=== PATIENT | male | born 1955 | race Caucasian/White ===

== ENCOUNTER 2016-09-03 18:36 | Emergency (ER) | payer OTHER ==
[2016-09-03 18:42] VITALS: BP 133/77; PULSE 94; RESP 20; TEMP 97.9; O2SAT 97
[2016-09-03] MEDS ORDERED: AZITHROMYCIN 250 MG TAB PO ONE (18:55)
--- NOTE | 2016-09-03 18:59 | EDPHY ---
H & P Stated Complaint: 8 days of SOB, body aches, cough, fevers and general malaise. Time Seen by Provider: 09/03/16 18:48 HPI/ROS: CHIEF COMPLAINT: Sinus congestion, cough, sore throat HISTORY OF PRESENT ILLNESS: Patient is a 52-year-old man who comes to the emergency department with his complaining low-grade fevers, sinus congestion, cough, sore throat and laryngitis. is worried that he may have developed pneumonia. He has been sick for about 8 day's. He has been taking TheraFlu and ibuprofen with only moderate improvement. He does complain of body aches. No rashes. No shortness of breath. History of cardiac or pulmonary disease. REVIEW OF SYSTEMS: Constitutional: See HPI EENTM: See HPI Respiratory: See HPI Cardiac: denies: chest pain, irregular heart rate, lightheadedness, palpitations Gastrointestinal/Abdominal: denies: abdominal pain, diarrhea, nausea, vomiting, blood streaked stools Genitourinary: denies: dysuria, frequency, hematuria, pain Musculoskeletal: denies: joint pain, muscle pain Skin: denies: lesions, rash, jaundice, bruising Neurological: denies: headache, numbness, paresthesia, tingling, dizziness, weakness Hematologic/Lymphatic: denies: blood clots, easy bleeding, easy bruising Immunologic/allergic: denies: HIV/AIDS, transplant EXAM: GENERAL: Well-appearing, well-nourished and in no acute distress. HEAD: Atraumatic, normocephalic. EYES: Pupils equal round and reactive to light, extraocular movements intact, sclera anicteric, conjunctiva are normal. ENT: TMs with purulent effusion , nares congested , oropharynx mildly erythematous without exudates. Moist mucous membranes. NECK: Normal range of motion, supple without lymphadenopathy or JVD. LUNGS: Breath sounds clear to auscultation bilaterally and equal. No wheezes rales or rhonchi. HEART: Regular rate and rhythm without murmurs, rubs or gallops. ABDOMEN: Soft, nontender, normoactive bowel sounds. No guarding, no rebound. No masses appreciated. BACK: No CVA tenderness, no spinal tenderness, step-offs or deformities EXTREMITIES: Normal range of motion, no pitting or edema. No clubbing or cyanosis. NEUROLOGICAL: Cranial nerves II through XII grossly intact. Normal speech, normal gait. 5/5 strength, normal movement in all extremities, normal sensation PSYCH: Normal mood, normal affect. SKIN: Warm, dry, normal turgor, no visible rashes or lesions. Source: Patient, Family - Personal History Current Tetanus Diphtheria and Acellular Pertussis (TDAP): Unsure - Medical/Surgical History Hx Asthma: No Hx Chronic Respiratory Disease: No Hx Diabetes: No Hx Cardiac Disease: No Hx Renal Disease: No Hx Cirrhosis: No Hx Alcoholism: No Hx HIV/AIDS: No Hx Splenectomy or Spleen Trauma: No Other PMH: HTN, High cholestrol. - Family History Significant Family History: No pertinent family hx - Social History Smoking Status: Never smoked Alcohol Use: Sober Drug Use: None Constitutional: Initial Vital Signs Temperature (C) 36.6 C 09/03/16 18:36 Heart Rate 94 09/03/16 18:36 Respiratory Rate 20 09/03/16 18:36 Blood Pressure 133/77 H 09/03/16 18:36 O2 Sat (%) 97 09/03/16 18:36 O2 Delivery Mode Room Air Allergies/Adverse Reactions: No Known Allergies Allergy (Unverified 11/03/10 08:57) Home Medications: Medication Instructions Recorded Cholesterol Med 11/03/10 Ciprofloxacin Ophth [Ciloxan eye 1 drop E.EYE Q4 #1 btl 11/03/10 drops] MICARDIS 80 mg DAILY 11/03/10 Olopatadine 0.1% [Patanol] 1 drops EACHEYE BID #1 bottle 11/03/10 Azithromycin 250 mg PO DAILY #4 tablet 09/03/16 Medical Decision Making ED Course/Re-evaluation: Patient does have sinusitis. His lung sounds are clear and vital signs are stable. Start him on azithromycin. He and his happy with this plan and declines further workup or testing. Differential Diagnosis: Partial list of the Differential diagnosis considered include but were not limited to; sinusitis, upper respiratory tract infection, otitis media, bronchitis and although unlikely based on the history and physical exam, I also considered pneumonia, meningitis, endocarditis. I discussed these differential diagnoses and the plan with the patient as well as the usual and expected course. The patient understands that the diagnosis is provisional and that in medicine we are not always correct and that further workup is often warranted. Usual and customary warnings were given. All of the patient's questions were answered. The patient was instructed to return to the emergency department should the symptoms at all worsen or return, otherwise to followup with the physician as we discussed. - Data Points Medications Given: Discontinued Medications Azithromycin (Zithromax) 500 mg PO EDNOW ONE PRN Reason: Protocol Stop: 09/03/16 18:56 Last Admin: 09/03/16 19:07 Dose: 500 mg Departure - Departure Disposition: Home, Routine, Self-Care Clinical Impression: Sinusitis Qualifiers: Sinusitis location: frontal Chronicity: acute Recurrence: non-recurrent Qualified Code(s): J01.10 - Acute frontal sinusitis, unspecified Condition: Fair Instructions: Sinusitis (ED) Referrals: [facility] [Other] - As per Instructions Prescriptions: Azithromycin 250 mg PO DAILY #4 tablet
== END 2016-09-03 19:19 | disposition home or self-care (01) ==
DX: J01.10 Acute frontal sinusitis, unspecified (principal); I10 Essential (primary) hypertension

== ENCOUNTER 2017-01-04 10:25 | Observation (INO) | payer OTHER ==
--- NOTE | 2017-01-04 10:54 | EDPHY ---
H & P Time Seen by Provider: 01/04/17 10:40 HPI/ROS: Chief complaint. Vertigo HPI. 61-year-old male presents emergency department with vertigo. He has a strong spinning component. He has had upper respiratory symptoms for a week with slight fever at onset. He was seen by his PCP who recommended symptomatic care for viral syndrome. Since then he has had no fever, headache, chest discomfort, shortness of breath. No abdominal pain but nausea with movement. His symptoms are better at rest and worse with head movement or upright position. No peripheral findings of weakness or paresthesias. He has had previous vertigo. He also has ringing in his ears currently ROS Constitutional. no fever/chills, no weakness Eyes. no problems with vision ENT. Congestion and ringing in ears Cardiovascular. no chest pain Respiratory. no shortness of breath, no cough Abdominal. No abdominal pain but nausea . no problems urinating MS. no calf pain/swelling, no neck/back pain, no joint pain Skin. no rash Lymph. no swollen glands Neuro. Dizzy which he describes as spinning Past Medical/Surgical History: Vertigo, hypertension, dyslipidemia, diverticulitis Social History: , nonsmoker, no alcohol Smoking Status: Never smoked Physical Exam: General Appearance: Alert pleasant well-developed male mild distress vital signs are stable Eyes: Pupils equal round reactive. There is mild horizontal nystagmus. ENT, tympanic membranes are normal. Pharynx without injection Respiratory: There are no retractions, lungs are clear to auscultation. Cardiovascular: Regular rate and rhythm. Gastrointestinal: Abdomen is soft and nontender, no masses, bowel sounds normal. Neurological: Awake and alert, sensory and motor exams grossly normal. Skin: Warm and dry, no rashes. Musculoskeletal: Neck is supple nontender. Extremities symmetrical, full range of motion. Psychiatric: Patient is oriented X 3, there is no agitation. Constitutional: Initial Vital Signs Temperature (C) 36.6 C 01/04/17 10:30 Heart Rate 78 01/04/17 10:30 Respiratory Rate 16 01/04/17 10:30 Blood Pressure 123/88 H 01/04/17 10:30 O2 Sat (%) 94 01/04/17 10:30 O2 Delivery Mode Room Air Allergies/Adverse Reactions: No Known Allergies Allergy (Unverified 11/03/10 08:57) Home Medications: Medication Instructions Recorded Carvedilol Cr [Coreg Cr] 10 mg PO HS 01/04/17 Omeprazole [Prilosec 20 mg] 20 mg PO DAILY PRN 01/04/17 Pravastatin Sodium [Pravachol] 80 mg PO HS 01/04/17 Telmisartan [Micardis] 80 mg PO HS 01/04/17 Medical Decision Making Procedures: IV normal saline, monitor. Meclizine and Ativan orally ED Course/Re-evaluation: Re-evaluation 1:15 p.m. patient is really not improved. I sat the patient up and he is nauseated and still having significant spinning sensation. Otherwise remains neurologically intact The patient, his , and I discussed treatment plan including recommendation for admission. They expressed understanding and agreement I consulted discussed case with Dr. Pearson, hospitalist, who agrees to the admission Differential Diagnosis: This is likely peripheral vertigo with horizontal nystagmus and normal neurologic exam. However, I have also considered central causes such as CVA. - Data Points Laboratory Results: Laboratory Results 01/04/17 10:40 01/04/17 10:40 01/04/17 01/04/17 10:40 10:40 WBC 8.60 10^3/uL 10^3/uL (3.80-9.50) RBC 5.37 10^6/uL 10^6/uL (4.40-6.38) Hgb 17.4 g/dL g/dL (13.7-17.5) Hct 47.3 % % (40.0-51.0) MCV 88.1 fL fL (81.5-99.8) MCH 32.4 pg pg (27.9-34.1) MCHC 36.8 g/dL H g/dL (32.4-36.7) RDW 13.0 % % (11.5-15.2) Plt Count 351 10^3/uL 10^3/uL (150-400) MPV 9.5 fL fL (8.7-11.7) Neut % (Auto) 66.0 % % (39.3-74.2) Lymph % (Auto) 23.5 % % (15.0-45.0) [place] % (Auto) 7.9 % % (4.5-13.0) Eos % (Auto) 1.5 % % (0.6-7.6) Baso % (Auto) 0.5 % % (0.3-1.7) Nucleat RBC Rel Count 0.0 % % (0.0-0.2) Absolute Neuts (auto) 5.68 10^3/uL 10^3/uL (1.70-6.50) Absolute Lymphs (auto) 2.02 10^3/uL 10^3/uL (1.00-3.00) Absolute Monos (auto) 0.68 10^3/uL 10^3/uL (0.30-0.80) Absolute Eos (auto) 0.13 10^3/uL 10^3/uL (0.03-0.40) Absolute Basos (auto) 0.04 10^3/uL 10^3/uL (0.02-0.10) Absolute Nucleated RBC 0.00 10^3/uL 10^3/uL (0-0.01) Immature Gran % 0.6 % % (0.0-1.1) Immature Gran # 0.05 10^3/uL 10^3/uL (0.00-0.10) Sodium 142 mEq/L mEq/L (134-144) Potassium 4.7 mEq/L mEq/L (3.5-5.2) Chloride 106 mEq/L mEq/L (97-110) Carbon Dioxide 23 mEq/l mEq/l (22-31) Anion Gap 13 mEq/L mEq/L (8-16) BUN 20 mg/dL mg/dL (7-23) Creatinine 0.9 mg/dL mg/dL (0.7-1.3) Estimated GFR > 60 Glucose 123 mg/dL H mg/dL (70-100) Calcium 10.2 mg/dL mg/dL (8.5-10.4) Troponin I < 0.012 ng/mL ng/mL (0.000-0.034) Medications Given: Discontinued Medications Lorazepam (Ativan) 0.5 mg PO EDNOW ONE Stop: 01/04/17 11:05 Last Admin: 01/04/17 11:41 Dose: 0.5 mg Lorazepam (Ativan) 0.5 mg PO EDNOW ONE Stop: 01/04/17 13:26 Last Admin: 01/04/17 13:50 Dose: 0.5 mg Meclizine HCl (Meclizine Hcl) 25 mg PO EDNOW ONE Stop: 01/04/17 11:05 Last Admin: 01/04/17 11:41 Dose: 25 mg Meclizine HCl (Meclizine Hcl) 25 mg PO EDNOW ONE Stop: 01/04/17 13:26 Last Admin: 01/04/17 13:50 Dose: 25 mg Departure - Departure Disposition: [facility] Clinical Impression: Vertigo Condition: Fair
[2017-01-04] MEDS ORDERED: MECLIZINE HCL 25 MG TAB PO ONE ×4 (11:04→13:25)
[2017-01-04] MEDS ORDERED: LORazepam 0.5 MG TAB PO ONE ×4 (11:04→13:25)
[2017-01-04 11:12] LABS: PLATELET COUNT 351 10^3/uL (150-400)
[2017-01-04] MEDS ORDERED: ONDANSETRON 4 MG/2 ML VIAL IVP PRN ×2 (13:57)
[2017-01-04] MEDS ORDERED: ONDANSETRON DISINTEGRATING 4 MG TAB PO PRN ×2 (13:57)
[2017-01-04] MEDS ORDERED: ACETAMINOPHEN 325 MG TAB PO PRN ×2 (13:57)
[2017-01-04] MEDS ORDERED: LORazepam 0.5 MG TAB PO PRN ×2 (13:57)
[2017-01-04] MEDS ORDERED: PROMETHAZINE HCL 25 MG TAB PO PRN ×2 (13:59)
[2017-01-04] MEDS ORDERED: NS 1,000 ML IV SCH ×2 (14:00)
--- NOTE | 2017-01-04 14:22 | GHP ---
[f rep st] HISTORY AND PHYSICAL DATE OF ADMISSION: 01/04/2017 CHIEF COMPLAINT: Dizziness. HISTORY OF PRESENT ILLNESS: This is a 61-year-old man who woke up at 1 a.m. this morning with sudden onset of dizziness, described as a sensation of spinning to the left when he is standing. It resolv es completely when he is lying down. He has had a viral upper respiratory infection for the last 2 w eeks. He was supposed to travel to [facility] today, however, did not travel due to this dizziness. He has never had this before. He notes no numbness or weakness in his extremities. He is not confu sed. PAST MEDICAL/SURGICAL HISTORY: 1. Hypertension. 2. Hyperlipidemia. 3. Somewhat recurrent mild diverticulitis. MEDICATIONS: Please see medication reconciliation. ALLERGIES: No known drug allergies. FAMILY HISTORY: Reviewed and noncontributory. SOCIAL HISTORY: He is accompanied by his . He travels frequently. REVIEW OF SYSTEMS: A 10-point review of systems is conducted and is negative except per HPI. PHYSICAL EXAM: VITAL SIGNS: Blood pressure 120/85, heart rate 88, respiration rate 16, saturating 9 5% on room air. Temperature 36.6. GENERAL: The patient is a pleasant man who looks somewhat uncomf ortable lying in bed. HEENT: Normocephalic, atraumatic. CARDIOVASCULAR: Regular rate and rhythm. No murmurs, rubs, or gallops. PULMONARY: Lungs clear to auscultation bilaterally. ABDOMEN: Soft, nontender, nondistended. SKIN: No rash. : No [place]. NEUROLOGIC: Alert and oriented x3. Cran ial nerves 2-12 are intact. He does have some mild right-sided horizontal nystagmus. Motor is 5/5 i n upper and lower extremities. Sensation to light touch is intact in his upper and lower extremities . Patellar reflexes are 1+, symmetric bilaterally. He has mild difficulty with [id number]; holly octaviano, other cerebellar findings are intact. PSYCHIATRIC: Normal mood and affect. LABORATORY DATA: CBC is normal. Basic metabolic panel is normal. I discussed this with Dr. Farah in the emergency department. We will admit to med/surg. IMPRESSION AND PLAN: A 61-year-old man with suspected vertigo. 1. Suspected vertigo: Symptoms not entirely consistent with vertigo as they completely resolve when he is lying down. He does have some mild cerebellar findings on exam, as well. Because of this, I will order an MRI without contrast. Otherwise, we will provide him supportive care including intrave nous fluids, antiemetics and meclizine. We will monitor him on telemetry. I discussed this with monster holm and his . 2. Hypertension: Will continue his medications. 3. Hyperlipidemia: Continue home medications. /[id number]/MODL
[2017-01-04] MEDS: MECLIZINE HCL 25 MG TAB PO SCH ×2 (22:01)
[2017-01-05] MEDS: MECLIZINE HCL 25 MG TAB PO SCH ×2 (07:33)
[2017-01-05 11:36] VITALS: BP 130/87; PULSE 91; RESP 15; TEMP 97.6; O2SAT 94
[2017-01-05] MEDS ORDERED: PANTOPRAZOLE SODIUM 40 MG TAB PO PRN ×2 (11:52)
--- NOTE | 2017-01-05 12:15 | GDS ---
[f rep st] DISCHARGE SUMMARY DIAGNOSES: 1. Vertigo. 2. Hypertension. 3. Hyperlipidemia. 4. Recent viral upper respiratory infection. HOSPITAL COURSE: A 61-year-old man admitted with vertigo. MRI confirmed no strokes. Treated with s ymptomatic control. He had a good response to meclizine. He was initially so dizzy that he was bare ly able to stand. On the day of discharge, he was able to ambulate safely on his own. He does have some minor vertigin ous symptoms. I have given a prescription for meclizine. He is discharged in stable condition. /[id number]/MODL
--- NOTE | 2017-01-05 14:08 | ASMTCMCOM ---
CM Note CM Note Notes: Reviewed chart for discharge plan, pt's progress. Pt admitted for sudden onset of dizziness/vertigo. Per MD notes, pt to discharge home independently today w/ family support and no identified needs. Pt to follow up as directed. No IM signed, not applciable, pt has [employer]. CM avail for any further issues or concerns. Final Discharge Plan: Home independently w/ family support Date Signed: 01/05/2017 02:08 PM Electronically Signed By:Ritu Palma RN
--- NOTE | 2017-01-05 14:11 | ASDISCHSUM ---
Discharge Information Plan Status:Home with No Needs Medically Cleared to Leave:01/05/2017 Discharge Date:01/05/2017 12:49 PM CM D/C Disposition:Home, Routine, Self-Care ADT D/C Disposition:Home, Routine, Self-Care Projected Discharge Date:01/05/2017 12:49 PM Transportation at D/C:Family Discharge Delay Reason: Follow-Up Date:01/05/2017 12:49 PM Discharge Slot:2 - 12:01 pm - 18:00 pm Final Diagnosis:Vertigo, hypertension, hyperlipidemia, recent viral resp infection Placement Information Patient Contact Information Contact Name:LALITHA Relationship: Address:[address] Work Phone: Annette:RAO [facility] Phone: [facility]/[place] Code:[place] [address] Email: Financial Information Financial Class:[facility] Primary Plan Desc:[facility] Primary Plan Number:[id number] Secondary Plan Desc: Secondary Plan Number: Assessment Information [facility] CM Progress Note CM Note CM Note Notes: Reviewed chart for discharge plan, pt's progress. Pt admitted for sudden onset of dizziness/vertigo. Per MD notes, pt to discharge home independently today w/ family support and no identified needs. Pt to follow up as directed. No IM signed, not applciable, pt has [facility]. avail for any further issues or concerns. Final Discharge Plan: Home independently w/ family support Date Signed: 01/05/2017 02:08 PM Electronically Signed By:Ritu Palma RN Intervention Information
--- NOTE | 2017-01-05 14:11 | ASDISCHSUM ---
Discharge Information Plan Status:Home with No Needs Medically Cleared to Leave:01/05/2017 Discharge Date:01/05/2017 12:49 PM CM D/C Disposition:Home, Routine, Self-Care ADT D/C Disposition:Home, Routine, Self-Care Projected Discharge Date:01/05/2017 12:49 PM Transportation at D/C:Family Discharge Delay Reason: Follow-Up Date:01/05/2017 12:49 PM Discharge Slot:2 - 12:01 pm - 18:00 pm Final Diagnosis:Vertigo, hypertension, hyperlipidemia, recent viral resp infection Placement Information Patient Contact Information Contact Name:LALITHA Relationship: Address:[address] Work Phone: Annette:RAO [facility] Phone: [facility]/[place] Code:[place] [address] Email: Financial Information Financial Class:[facility] Primary Plan Desc:[facility] Primary Plan Number:[id number] Secondary Plan Desc: Secondary Plan Number: Assessment Information [facility] CM Progress Note CM Note CM Note Notes: Reviewed chart for discharge plan, pt's progress. Pt admitted for sudden onset of dizziness/vertigo. Per MD notes, pt to discharge home independently today w/ family support and no identified needs. Pt to follow up as directed. No IM signed, not applciable, pt has [facility]. avail for any further issues or concerns. Final Discharge Plan: Home independently w/ family support Date Signed: 01/05/2017 02:08 PM Electronically Signed By:Ritu Palma RN Intervention Information
--- NOTE | 2017-01-05 14:11 | ASDISCHSUM ---
Discharge Information Plan Status:Home with No Needs Medically Cleared to Leave:01/05/2017 Discharge Date:01/05/2017 12:49 PM CM D/C Disposition:Home, Routine, Self-Care ADT D/C Disposition:Home, Routine, Self-Care Projected Discharge Date:01/05/2017 12:49 PM Transportation at D/C:Family Discharge Delay Reason: Follow-Up Date:01/05/2017 12:49 PM Discharge Slot:2 - 12:01 pm - 18:00 pm Final Diagnosis:Vertigo, hypertension, hyperlipidemia, recent viral resp infection Placement Information Patient Contact Information Contact Name:LALITHA Relationship: Address:[address] Work Phone: Annette:[facility] Phone: [facility]/[employer] Code:[place] [address] Email: Financial Information Financial Class:[facility] Primary Plan Desc:[facility] Primary Plan Number:[id number] Secondary Plan Desc: Secondary Plan Number: Assessment Information [facility] CM Progress Note CM Note CM Note Notes: Reviewed chart for discharge plan, pt's progress. Pt admitted for sudden onset of dizziness/vertigo. Per MD notes, pt to discharge home independently today w/ family support and no identified needs. Pt to follow up as directed. No IM signed, not applciable, pt has [facility]. avail for any further issues or concerns. Final Discharge Plan: Home independently w/ family support Date Signed: 01/05/2017 02:08 PM Electronically Signed By:Ritu Palma RN Intervention Information
[2017-01-05] MEDS ORDERED: CARVEDILOL CR 10 MG CAP PO SCH ×2 (21:00)
[2017-01-05] MEDS ORDERED: TELMISARTAN 40 MG TAB PO SCH ×2 (21:00)
[2017-01-05] MEDS ORDERED: PRAVASTATIN SODIUM 40 MG TAB PO SCH ×2 (21:00)
== END 2017-01-05 12:49 | disposition home or self-care (01) ==
LOC: INTOOBSV 13:24 → F3E 14:42
PROVIDERS: ADMIT Student in an Organized Health Care Education/Training Program; ATTEND Student in an Organized Health Care Education/Training Program
DX: H81.10 Benign paroxysmal vertigo, unspecified ear (principal); I10 Essential (primary) hypertension; E78.5 Hyperlipidemia, unspecified; Z86.19 Personal history of other infectious and parasitic diseases; K57.30 Diverticulosis of large intestine without perforation or abscess without bleeding
CPT/HCPCS: 70551; G0378